=== PATIENT | female | born 1960 | race African-American/Black ===

== ENCOUNTER → 2016-11-27 | Outpatient (CLI) | payer BC ==
[~2016-11-27] MED LIST: GADOBUTROL 7.5 MMOL/7.5 ML VIAL INT ART ONE; IOHEXOL 300 MG/ML 100ML VIAL. INT ART ONE; LIDOCAINE 1% Multi-Dose 20 ML VIAL. IJ ONE
--- NOTE | 2016-11-27 12:48 | KCIC ---
MR arthrogram of the right shoulder Indication: Pain. Previous surgery 2014. Pain for 6 months. Technique: Intra-articular contrast injected into the glenohumeral joint and is reported separately. Routine 4 plane sequences were obtained, including ABER positioning. Findings: Acromioclavicular joint:Intact. Rotator cuff: Screw anchors at the humeral head compatible with prior rotator cuff repair. Diffuse thinning of the supraspinatus tendon with surface irregularity. The supraspinatus is very thin at the myotendinous junction. On Aber sequence, and less well seen on coronal sequence, there is a small through and through full-thickness defect measures no more than 1 cm diameter without gross retraction. Contrast does accumulate in the subdeltoid bursa. Articular cartilage: No acute cartilage defect or advanced DJD. Labrum:No evidence of labral tear or para labral cyst Biceps tendon: Intact Bones: No lesion or acute fracture. Soft tissue: No acute findings. Impression:Small full-thickness nonretracted defect or tear of the anterior supraspinatus at the myotendinous junction. Electronically signed by: Gurpreet Hernandez MD (11/27/2016 12:45 PM) [email or web address]
--- NOTE | 2016-11-27 13:22 | KCIC ---
MR arthrogram of the left shoulder Indication: Surgery 2016. Shoulder pain for 6 months. Technique: Intra-articular contrast injected into the glenohumeral joint and is reported separately. Routine 4 plane sequences were obtained, including ABER positioning. Findings: Acromioclavicular joint: Widening, presumably due to prior surgery. Rotator cuff: Screw anchors identified at the humeral head compatible with reattachment surgery. There is a small deep 90 percent linear undersurface defect of the supraspinatus tendon best seen on the Valdez sequence, series 12, image 13. This measures only 2 or 3 mm wide. No through and through rupture measuring greater than 1 cm is identified. Mild muscle atrophy. Subdeltoid bursa: Contrast does accumulate in the bursa. Articular cartilage: Mild glenohumeral chondromalacia. Labrum:No evidence of labral tear or para labral cyst Biceps tendon: Intact Bones: No lesion or acute fracture. Soft tissue: No acute findings. Impression: Linear deep undersurface defect of the supraspinatus tendon. No evidence of large full-thickness recurrent rotator cuff rupture. Electronically signed by: Gurpreet Hernandez MD (11/27/2016 1:18 PM) [email or web address]
--- NOTE | 2016-11-27 13:26 | KCIC ---
PROCEDURE: Left shoulder injection using fluoroscopic guidance, prior to MR. HISTORY: Shoulder pain. Pain for 6 months. TECHNIQUE: The procedure was explained to the patient as were potential risks, including among others infection, bleeding or allergic reaction. All questions were answered. Informed written and verbal consent was obtained. The shoulder was prepped and draped in the usual sterile manner. Following administration of local anesthetic, a 22-gauge needle was advanced into the anterior shoulder. Following negative aspiration, 12 cc of a solution of 5cc Omnipaque-300 contrast, 5 cc 1% lidocaine, 10 cc normal saline, and 0.1 cc gadolinium was injected without difficulty. The needle was removed. There was good hemostasis at the injection site. The patient left in stable condition without immediate complication. The patient was given postprocedural instructions, and instructed to contact us or the ER if there are any complications. A single spot image is obtained. FLUOROSCOPY TIME:?27 seconds Electronically signed by: Gurpreet Hernandez MD (11/27/2016 1:22 PM) [id number]
--- NOTE | 2016-11-27 13:26 | KCIC ---
PROCEDURE: Right shoulder injection using fluoroscopic guidance, prior to MR. HISTORY: Shoulder pain. Pain for 6 months. TECHNIQUE: The procedure was explained to the patient as were potential risks, including among others infection, bleeding or allergic reaction. All questions were answered. Informed written and verbal consent was obtained. The shoulder was prepped and draped in the usual sterile manner. Following administration of local anesthetic, a 22-gauge needle was advanced into the anterior shoulder. Following negative aspiration, 12 cc of a solution of 5cc Omnipaque-300 contrast, 5 cc 1% lidocaine, 10 cc normal saline, and 0.1 cc gadolinium was injected without difficulty. The needle was removed. There was good hemostasis at the injection site. The patient left in stable condition without immediate complication. The patient was given postprocedural instructions, and instructed to contact us or the ER if there are any complications. A single spot image is obtained. FLUOROSCOPY TIME:?60 seconds Electronically signed by: Gurpreet Hernandez MD (11/27/2016 1:22 PM) [email or web address]
== END | disposition home or self-care (01) ==
LOC: KCIC 09:59
PROVIDERS: ATTEND Nurse Practitioner Gerontology
DX: M94.212 Chondromalacia, left shoulder (principal); M94.211 Chondromalacia, right shoulder; M62.512 Muscle wasting and atrophy, not elsewhere classified, left shoulder; M62.511 Muscle wasting and atrophy, not elsewhere classified, right shoulder
CPT/HCPCS: 73040; 73222; A9585; Q9967

== ENCOUNTER 2017-01-09 09:27 | Day surgery (SDC) | payer BC ==
[~2017-01-09] VITALS: Ht 160 cm; Wt 66.2 kg
[~2017-01-09 09:27] MED LIST changes: +AMLO5TAB2 PO; +ASPI-482 PO; +ATOR20TA58 PO; +BUPIVACAINE MPF 0.5% 30 ML VIAL. ONE; +CYCL10TA2 PO; +EPINEPHrine VIAL 30 MG/30 ML VIAL ONE; -GADOBUTROL 7.5 MMOL/7.5 ML VIAL INT ART ONE; +HYDR-2758 PO; +HYDROmorphone 2 MG/ML VIAL IV PRN; -IOHEXOL 300 MG/ML 100ML VIAL. INT ART ONE; -LIDOCAINE 1% Multi-Dose 20 ML VIAL. IJ ONE; +LIDOCAINE 1% PF 2 ML VIAL. ID PRN; +LIDOCAINE 1% PF 30 ML VIAL. ONE; +LISI-334 PO; +METO100T5 PO; +MORPHINE SULFATE 2 MG/ML DISP.SYRIN. IV PRN; +ONDANSETRON PF 4 MG/2 ML VIAL. IV PRN; +PROCHLORPERAZINE 10 MG/2 ML VIAL. IV PRN; +VITA1TAB3 PO; +fentaNYL PF VIAL 100 MCG/2 ML VIAL IV PRN
[2017-01-09] MEDS: IV RINGERS,LACTATED 1000ML 1,000 ML IV SCH ×2 (10:05→14:19)
[2017-01-09] MEDS ORDERED: MIDAZOLAM HCL/PF 2 MG/2 ML VIAL. ONE ×2 (10:10→10:18)
[2017-01-09] MEDS ORDERED: ROPIVacaine 0.5% PF 30 ML VIAL. ONE (10:10)
[2017-01-09] MEDS ORDERED: ONDANSETRON PF 4 MG/2 ML VIAL. ONE (10:17)
[2017-01-09] MEDS ORDERED: PROPOFOL 20 ML IV ONE (10:17)
[2017-01-09] MEDS ORDERED: LIDOCAINE 2% PF Vial for OR 5 ML VIAL. ONE (10:17)
[2017-01-09] MEDS ORDERED: DEXAMETHASONE SOD PHOS 20 MG/5 ML VIAL. ONE (10:17)
[2017-01-09] MEDS ORDERED: fentaNYL PF VIAL 100 MCG/2 ML VIAL ONE (10:18)
[2017-01-09] MEDS ORDERED: NEOSTIGMINE 10 MG/10 ML VIAL. ONE (10:26)
--- NOTE | 2017-01-09 11:04 | DISCH ---
DISCHARGE INSTRUCTIONS Condition on Discharge Condition on Discharge: Stable Activity After Discharge Activity Instructions for Disc: Other, see below Other activity instructions: arm to remain in sling Bathing Instructions: Shower-keep dressing dry Weight Bearing Status after Di: Non weight bearing Diet after Discharge Diet after Discharge: Regular Wound Incision Care Wound/Incision Care: Ice to area for comfort, Keep wound/cast CDI, Change dressing Contacting the DR. after DC Call your doctor for: Concerns you may have Follow-Up Follow up with: Antoine in 2wks ANTONI DUDLEY II, MD Jan 09, 2017 11:04
--- NOTE | 2017-01-09 11:06 | PDOC ---
BRIEF OPERATIVE NOTE Date: Jan 09, 2017 Pre-Op Diagnosis Recurrent L RTC tear Post-Op Diagnosis same Procedure Performed R shoulder arthroscopy, revision RTC repair Surgeon Antoine Polanco Anesthesia Type: General, Regional Blood Loss 10mL Complications none ANTONI DUDLEY II, MD Jan 09, 2017 11:06
[2017-01-09] MEDS ORDERED: PHENYLEPHRINE in 0.9% NACL PF 1 MG/10 ML DISP.SYRIN. IV ONE (11:15)
[2017-01-09] MEDS ORDERED: GLYCOPYRROLATE 1 MG/5 ML VIAL. ONE (11:16)
[2017-01-09] MEDS ORDERED: SEVOFLURANE 61 TO 120 MINUTES. IH ONE (11:54)
--- NOTE | 2017-01-09 12:54 | OP ---
DATE OF SURGERY: 01/09/2017 SURGEON: Derek Dudley MD POT MAKER: Dominique Polanco. ANESTHESIA: General plus regional nerve block. PREOPERATIVE DIAGNOSIS: Recurrent left shoulder rotator cuff tear. POSTOPERATIVE DIAGNOSIS: Recurrent left shoulder rotator cuff tear. PROCEDURE PERFORMED: Revision left shoulder rotator cuff repair, arthroscopic. COMPONENTS INSERTED: [employer] Healicoil anchor x 1. FINDINGS: The patient had intact cartilage in the glenohumeral joint. Biceps was intact. Labrum was intact circumferentially. She had a fair amount of scar tissue around her subscapularis. She had a full-thickness supraspinatus tear. She had a large amount of soft tissue in her subacromial space. ESTIMATED BLOOD LOSS: 10 mL REASON FOR PROCEDURE: The patient is a very pleasant 56-year-old female who underwent rotator cuff repair several months ago. We had seen and been following her in outpatient consult. Please see my and my nurse practitioners outpatient notes for full details, but in short after failure of more conservative therapies, we had discussion of risks, benefits, alternatives of proceeding with the above surgery after reviewing clinical and MRI evidence. She elected to proceed. DESCRIPTION OF PROCEDURE: The patient was greeted in the preoperative area by myself. Correct extremity was marked and verified. She was taken to the operative suite and antibiotics were started en route. Once in the operating room, she had successful placement of a regional nerve block, followed by induction of general anesthetic. We then transferred gently supine to the OR table and set her up in beach-chair position with her C-spine maintained in neutral position. She was secured to the bed. She had a large pad under her legs. After this, we proceeded to prep and drape the left upper extremity in our usual sterile fashion and conducted a standard preoperative timeout. I then palpated and marked her surface anatomy and used a spinal needle to localize posterosuperior portal and incised skin in accordance with this. I then introduced my blunt arthroscopic trocar into the glenohumeral joint, followed by the camera. I used a spinal to localize the anterosuperior portal and then conducted my diagnostic arthroscopy with the above-noted findings. I visualized the tear. I worked it from the glenohumeral joint and after establishing a lateral portal, I debrided the recurrent rotator cuff tear and used a suture cutter and regular grasper to remove the prior stitch. It did appear that she had a double anchor with a lateral row and it did appear that a lot of her repair had healed, especially the infraspinatus. After removing as much of the sutures I could, I repositioned the camera in the subacromial space and then continued debriding the recurrent tear and removing the foreign suture material. After this, I inspected the tear and it was more of a linear split rather than U-shaped tear, so I elected to repair with a single anchor as the tear was only approximately 8 mm wide, but was about a centimeter and a half long. After this, I placed my Healicoil anchor and then shuttled the suture limbs through for 2 mattress suture type configurations to converge the margin and then tied these down using arthroscopic knot tying techniques. I then tested my repair and with gentle rotation, there was no gapping. I was happy with how this came together. I then cut the suture limbs, removed all excess arthroscopic fluid. After this, the portals were closed with 2-0 nylon in a simple interrupted fashion. Left upper extremity and shoulder girdle was then cleansed, dried and sterile dressing was applied, followed by an abduction pillow sling. She was then laid down in supine. She was transferred gently supine to the recovery room cart and taken to PACU in stable and extubated condition. No complications. Postop plan is nonweightbearing x 6 weeks. She will be in a sling. We will get her started on physical therapy. We will see her back in 2 weeks, sooner should problems arise. DEREK DUDLEY MD DR: JEAN PAUL/jhoana JOB#: [id number] / [id number] SNEHA
[2017-01-09] MEDS ORDERED: DOCU-109 PO (13:01)
[2017-01-09] MEDS ORDERED: OXYC-323 PO (13:01)
[2017-01-09] MEDS ORDERED: ONDA4TAB10 SL (13:02)
[2017-01-09] MEDS ORDERED: oxyCODONE/APAP 5/325 1 TAB TABLET PO ONE (13:30)
[2017-01-09 13:40] VITALS: BP 123/63
== END 2017-01-09 14:53 | disposition home or self-care (01) ==
LOC: SURG 09:27
PROVIDERS: ATTEND Orthopaedic Surgery Sports Medicine
DX: M75.112 Incomplete rotator cuff tear or rupture of left shoulder, not specified as traumatic (principal); M94.212 Chondromalacia, left shoulder; M94.211 Chondromalacia, right shoulder; I10 Essential (primary) hypertension; E78.00 Pure hypercholesterolemia, unspecified; Z98.890 Other specified postprocedural states
CPT/HCPCS: 82962; C1782; J0171; J0690; J0780; J1100; J2250; J2370; J2405; J2704; J2710; J2795; J3010; J3490; J7120; J2001